=== PATIENT | male | born 1950 | race Caucasian/White ===

== ENCOUNTER → 2019-08-13 13:06 | Outpatient (CLI) | payer MEDICARE, OTHER | END | disposition home or self-care (01) | LOC: D.RT 13:00 | PROVIDERS: ATTEND Internal Medicine Pulmonary Disease | DX: J44.9 Chronic obstructive pulmonary disease, unspecified (principal); J43.9 Emphysema, unspecified ==

== ENCOUNTER 2019-10-23 08:08 | Outpatient (CLI) | payer MEDICARE, OTHER ==
[~2019-10-23] VITALS: Ht 180.3 cm; Wt 92.3 kg
[2019-10-23 08:29] LABS: BASOPHILS 0.4 % (0-2); EOSINOPHILS 3.4 % (0-7); HEMATOCRIT 35.9 % (42.0-54.0); HEMOGLOBIN 10.8 g/dL (13.5-17.5); IMMATURE GRANULOCYTES 0.2 % (0-5); LYMPHOCYTES 14.6 % (15-50); MCH 26.4 pg (26.0-34.0); MCHC 30.1 g/dL (31.0-37.0); MCV 87.8 fL (80.0-100.0); MONOCYTES 9.8 % (2-11); NEUTROPHILS 71.6 % (40-80); PLATELET COUNT 229 10x3/uL (130-400); RBC 4.09 10x6/uL (4.20-6.10); RDW 16.8 % (11.5-14.5); WBC 5.2 10x3/uL (4.8-10.8)
[2019-10-23 08:50] LABS: ANION GAP 8.8 mmol/L (8-16); CALCIUM 8.6 mg/dL (8.5-10.1); CARBON DIOXIDE 30.6 mmol/L (21.0-32.0); CREATININE - SERUM 1.6 mg/dL (0.6-1.3); POTASSIUM - SERUM 4.4 mmol/L (3.5-5.1)
[2019-10-23 08:59] LABS: APTT 26.3 SECONDS (22.8-39.4)
[2019-10-23 09:01] LABS: INR 0.96 (0.85-1.17); PROTIME 12.7 SECONDS (11.6-15.0)
[2019-10-23] MEDS ORDERED: TOPROL XL25 MG PO (10:13)
[2019-10-23] MEDS ORDERED: PRAVACHOL40 MG PO (10:13)
[2019-10-23] MEDS ORDERED: BRILINTA90 MG PO (10:13)
[2019-10-23 10:14] VITALS: BP 122/61; BMI 28.3
[2019-10-23] MEDS ORDERED: ANORO ELLIPTA1 EACH INH (10:14)
[2019-10-23] MEDS ORDERED: XARELTO20 MG PO (10:14)
--- NOTE | 2019-10-23 14:32 | NUR ---
CHEST X-RAY IS BEING TAKEN CURRENTLY. WILL WAIT FOR RESULTS.
--- NOTE | 2019-10-23 15:09 | NUR ---
RESULTS FROM CHEST X-RAY SHOWED THAT THE AREA OF CONCERN IS STABLE. CALLED DR. CHIN. HE SAID TO KEEP PT UNTIL 1600. HE WILL COME BY TO SEE PT. PT AT THIS TIME IS DOING WELL. DENIES PAIN/NEEDS AT THIS TIME. ABLE TO TOLERATE WATER. SPOUSE AT BEDSIDE. WILL CONTINUE TO MONITOR.
--- NOTE | 2019-10-23 15:25 | NUR ---
DC INSTRUCTIONS GIVEN TO PT/SPOUSE. STATES UNDERSTANDING.
--- NOTE | 2019-10-23 15:50 | NUR ---
PT VOIDED. PT DENIES PAIN/NEEDS AT THIS TIME.
[2019-10-23 16:00] VITALS: BP 111/51
--- NOTE | 2019-10-23 16:08 | NUR ---
DR. CHIN MAY KEEP PT OVERNIGHT FOR OBSERVATION. WAITING FOR HIS ORDER. PT'S O2 SAT LEVEL ABOUT 91-92% WHEN HE GETS UP TO WALK. PT DENIES PAIN/NEEDS AT THIS TIME. WILL CONTINUE TO MONITOR.
--- NOTE | 2019-10-23 16:24 | NUR ---
SPOKE W/ DR. CHIN'S NURSE. PT WILL BE ADMITTED OVERNIGHT FOR OBSERVATION. HE WILL BE ON 2L O2 VIA NC.
--- NOTE | 2019-10-23 16:27 | NUR ---
CALLED POCKET OPERATOR TO INFORM HER OF DR. HCIN'S ORDERS. SHE WILL CALL BACK WHEN THERE IS A ROOM AVAILABLE.
--- NOTE | 2019-10-23 16:39 | NUR ---
REPORT GIVEN TO MED SURG. NURSE. WILL TRANSFER PT NOW.
[2019-10-23 20:00] VITALS: BP 112/50
[2019-10-24 00:06] VITALS: BP 115/53
--- NOTE | 2019-10-24 01:19 | NUR ---
PT RESTING IN BED. EYES CLOSED. NO SIGNS OF DISTRESS. BREATHING EVEN AND UNLABORED IV SITE RT FA DRESSING CLEAN DRY AND INTACT. NO SIGNS OF INFECTION OR INFULTRATION. BOWEL SOUNDS ACTIVE. 2LO2 NASAL CANNULA. SKIN CLEAN DRY AND INTACT. WILL CONTINUE PLAN OF CARE. CALL LIGHT IN REACH. BED LOWERED AND LOCKED. BED RAILS UPX1.
--- NOTE | 2019-10-24 03:36 | NUR ---
I have reviewed this patient and I concur with the Shift Assessment completed by the Licensed Practical Nurse today this shift.
[2019-10-24 04:00] VITALS: BP 121/98
[2019-10-24 08:34] VITALS: BP 96/48
[2019-10-24 09:42] VITALS: BP 122/61; Ht 180.3 cm; Wt 92.3 kg
--- NOTE | 2019-10-24 10:17 | NUR ---
WENT OVER DC PAPERS WITH PT AND SPOUISE, ANSWERED ALL QUESTIONS, DC IV IN RT FA, CATHETER INTACT, PT TAKEN DOWN VIA WC BY APPLICATOR SPRAYER
== END 2019-10-24 10:18 | disposition home or self-care (01) ==
LOC: D.SP 08:08 → D.CT 10:00 → D.MS 16:39 → D.SP 10-24 10:18
PROVIDERS: General Practice; ATTEND Internal Medicine Pulmonary Disease
DX: R91.8 Other nonspecific abnormal finding of lung field (principal); I48.91 Unspecified atrial fibrillation; I25.2 Old myocardial infarction; Z85.038 Personal history of other malignant neoplasm of large intestine; Z87.891 Personal history of nicotine dependence; I25.10 Atherosclerotic heart disease of native coronary artery without angina pectoris; J43.9 Emphysema, unspecified; J96.11 Chronic respiratory failure with hypoxia; J95.811 Postprocedural pneumothorax